=== PATIENT | female | born 1995 | race Caucasian/White ===

== ENCOUNTER 2018-03-08 14:13 | Inpatient (IN) | payer MEDICAID ==
[2018-03-08] MEDS ORDERED: Sodium Chloride 0.9% 10 ML Syringe FLUSH PRN (15:10)
[2018-03-08] MEDS ORDERED: Citric Acid/Sodium Citrate Solution 30 ML Cup PO ONE (15:10)
[2018-03-08] MEDS ORDERED: Metoclopramide 10 MG/2 ML SDV IVPUSH ONE (15:10)
--- NOTE | 2018-03-08 15:16 | PCM.LDHP ---
L&D History of Present Illness - General Date of Service: 03/08/18 Admit Problem/Dx: Patient Status Order with Admit Dx/Problem 03/08/18 15:11 Patient Status [ADT] Routine Admission Diagnosis/Problem Admission Diagnosis/Problem intolerance to labor, delivered, current hospitalization Source of Information: Patient History Limitations: Reports: No Limitations - History of Present Illness Introduction:: 22 year old at 35w4 days with late care dated by a 29 week ultrasound presents with contractions, nausea and vomiting and had multiple heart rate decelerations some to the 60s - Related Data Allergies/Adverse Reactions: Allergies Allergy/AdvReac Type Severity Reaction Status Date / Time No Known Allergies Allergy Verified 02/25/18 01:43 H&P Review of Systems - Review of Systems: Review Of Systems: See Below General: Reports: No Symptoms HEENT: Reports: No Symptoms Pulmonary: Reports: No Symptoms Cardiovascular: Reports: No Symptoms Gastrointestinal: Reports: No Symptoms Genitourinary: Reports: Hematuria Musculoskeletal: Reports: No Symptoms Skin: Reports: No Symptoms Psychiatric: Reports: No Symptoms Neurological: Reports: No Symptoms Hematologic/Lymphatic: Reports: No Symptoms Immunologic: Reports: No Symptoms L&D Exam - Exam Exam: See Below - Vital Signs Vital Signs: Last Vital Signs Temp 37.1 C 03/08/18 14:32 Pulse 95 03/08/18 14:38 Resp 16 03/08/18 14:32 BP 123/76 03/08/18 14:32 Pulse Ox - OB Specific Contraction Intensity: Mild Movement: Active Heart Tones per Min: 145 Heart Rate (FHR) Variability: Moderate (6-25 bmp) Presentation: Vertex - Lomeli Score Lomeli Score Cervix Position: Midposition Lomeli Score Consistency: Soft Lomeli Score Effacement: 51-70% Lomeli Score Dilation: 1-2 cm Lomeli Score Infant's Station: -1 ,0 Lomeli Score Total: 8 - Exam General: Alert, Oriented HEENT: PERRLA, Conjunctiva Clear, EACs Clear, EOMI, Hearing Intact, Mucosa Moist & [place], Nares Patent, Normal Nasal Septum, Posterior Pharynx Clear, TMs Clear Neck: Supple, Trachea Midline Lungs: Clear to Auscultation, Normal Respiratory Effort Cardiovascular: Regular Rate, Regular Rhythm GI/Abdominal Exam: Normal Bowel Sounds, Soft, Non-Tender, No Organomegaly, No Distention, No Abnormal Bruit, No Mass, Pelvis Stable Rectal Exam: Normal Exam, Normal Rectal Tone Genitourinary: Normal external exam, Normal bimanual exam, Normal speculum exam Extremities: Normal Inspection, Normal Range of Motion, Non-Tender, No Pedal Edema, Normal Capillary Refill Skin: Warm, Dry, Intact Neurological: Cranial Nerves Intact, Reflexes Equal Bilateral Psychiatric: Alert, Normal Affect, Normal Mood Problem List Initiated/Reviewed/Updated: Yes Orders Last 24hrs: Active Orders 24 hr Category Date Time Status Patient Status [ADT] Routine ADT 03/08/18 15:11 Ordered Communication Order [RC] ROUTINE Care 03/08/18 15:11 Ordered Heart Tones [RC] PER UNIT ROUTINE Care 03/08/18 15:11 Ordered Peripheral IV Care [RC] . DIRECTED Care 03/08/18 15:11 Ordered Procedure Site Prep Instruct [RC] ASDIRECTED Care 03/08/18 15:11 Ordered Verify Patient Consent Obtain [RC] PER UNIT ROUTINE Care 03/08/18 15:11 Ordered Vital Signs [RC] PFP Care 03/08/18 15:11 Ordered CBC W/O DIFF,HEMOGRAM [HEME] Stat Lab 03/08/18 15:10 Ordered TYPE AND SCREEN [BBK] Routine Lab 03/08/18 15:11 Ordered Citric Acid/Sodium Citrate [Bicitra Solution] Med 03/08/18 15:10 Once 30 ml PO ONETIME ONE Lactated Ringers @ 125 MLS/HR(1000ml) Med 03/08/18 15:15 Ordered Lactated Ringers [Ringers, Lactated] 1,000 ml IV ASDIRECTED Metoclopramide [Reglan] Med 03/08/18 15:10 Once 10 mg IVPUSH ONETIME ONE Sodium Chloride 0.9% [Saline Flush] Med 03/08/18 15:10 Ordered 10 ml FLUSH ASDIRECTED PRN Peripheral IV Insertion Adult [OM.PC] Routine Oth 03/08/18 15:11 Ordered Schedule Procedure [COMM] Per Unit Routine Oth 03/08/18 15:11 Ordered Resuscitation Status Routine Resus Stat 03/08/18 15:10 Ordered Medication Orders Citric Acid/Sodium Citrate (Bicitra Solution) 30 ml PO ONETIME ONE Stop: 03/08/18 15:11 Lactated Ringer's (Ringers, Lactated) 1,000 mls @ 125 mls/hr IV ASDIRECTED [facility] Metoclopramide HCl (Reglan) 10 mg IVPUSH ONETIME ONE Stop: 03/08/18 15:11 Sodium Chloride (Saline Flush) 10 ml FLUSH ASDIRECTED PRN PRN Reason: Keep Vein Open Assessment/Plan Comment:: Monitor closely. Probable section if doesn't improve promptly.
[2018-03-08] MEDS ORDERED: Morphine PF 10 MG/10 ML SDV ONE (15:42)
[2018-03-08] MEDS ORDERED: ceFAZolin 1 GM Vial ONE (15:43)
[2018-03-08] MEDS ORDERED: Ondansetron 4 MG/2 ML SDV ONE (15:43)
[2018-03-08] MEDS ORDERED: Oxytocin 10 Units/1 ML SDV ONE (15:43)
[2018-03-08] MEDS ORDERED: Bupivacaine 0.75%/D5W 2 ML Amp ONE (15:46)
[2018-03-08] MEDS: Lactated Ringers 1,000 ML IV SCH ×2 (15:48→15:49)
[2018-03-08] MEDS ORDERED: Bupivacaine 0.5% 30 ML SDV ONE (15:52)
--- NOTE | 2018-03-08 15:56 | PCM.PREANE ---
Preanesthetic Assessment - Anesthesia/Transfusion/Family Hx Anesthesia History: No Prior Anesthesia Family History of Anesthesia Reaction: No Transfusion History: No Prior Transfusion(s) - Review of Systems General: No Symptoms Pulmonary: No Symptoms Cardiovascular: No Symptoms Gastrointestinal: Nausea, Vomiting (started at 3 am today) Neurological: No Symptoms Other: Reports: None - Physical Assessment NPO Status Date: 03/08/18 NPO Status Time: 14:00 (sip- soup at 1230) Pulse: 95 Respiratory Rate: 16 Blood Pressure: 123/76 Temperature: 98.8 F Vital Signs: Last Vital Signs Temp 98.8 F 03/08/18 14:32 Pulse 95 03/08/18 14:38 Resp 16 03/08/18 14:32 BP 123/76 03/08/18 14:32 Pulse Ox Height: 5 ft 2 in Weight: 63.503 kg ASA Class: 2E Mental Status: Alert & Oriented x3 Airway Class: Mallampati = 1 Dentition: Reports: Normal Dentition Thyro-Mental Finger Breadths: 3 Mouth Opening Finger Breadths: 3 ROM/Head Extension: Full Lungs: Clear to Auscultation, Normal Respiratory Effort Cardiovascular: Regular Rate, Regular Rhythm - Lab Values: Laboratory Last Values WBC 18.14 K/mm3 (3.98-10.04) H 03/08/18 15:25 RBC 4.14 M/mm3 (3.98-5.22) 03/08/18 15:25 Hgb 11.4 gm/L (11.2-15.7) 03/08/18 15:25 Hct 34.4 % (34.1-44.9) 03/08/18 15:25 MCV 83.1 fl (79.4-94.8) 03/08/18 15:25 MCH 27.5 pg (25.6-32.2) 03/08/18 15:25 MCHC 33.1 g/dl (32.2-35.5) 03/08/18 15:25 RDW Std Deviation 44.2 fL (36.4-46.3) 03/08/18 15:25 Plt Count 341 K/mm3 (182-369) 03/08/18 15:25 MPV 9.3 fl (9.4-12.3) L 03/08/18 15:25 - Allergies Allergies/Adverse Reactions: Allergies Allergy/AdvReac Type Severity Reaction Status Date / Time No Known Allergies Allergy Verified 02/25/18 01:43 - Blood Blood Available: No - Acknowledgements Anesthesia Type Planned: Spinal Pt an Appropriate Candidate for the Planned Anesthesia: Yes Alternatives and Risks of Anesthesia Discussed w Pt/Guardian: Yes Pt/Guardian Understands and Agrees with Anesthesia Plan: Yes PreAnesthesia Questionnaire Cardiovascular History: Reports: None Respiratory History: Reports: None Gastrointestinal History: Reports: None : 1 (35 weeks) Para: 0 Oncologic (Cancer) History: Reports: None - History Comment History Comment: vits - SUBSTANCE USE Smoking Status *Q: Current Every Day Smoker (2-3 cigs a day times 1 year) Tobacco Use Within Last Twelve Months: Cigarettes Second Hand Smoke Exposure: Yes Days Per Week of Alcohol Use: 0 Recreational Drug Use History: No - CURRENT (IN HOUSE) MEDS Current Meds: Current Medications Lactated Ringer's (Ringers, Lactated) 1,000 mls @ 125 mls/hr IV ASDIRECTED [facility]IFF Last Admin: 03/08/18 15:49 Dose: 125 mls/hr Sodium Chloride (Saline Flush) 10 ml FLUSH ASDIRECTED PRN PRN Reason: Keep Vein Open Discontinued Medications Bupivacaine HCl/Dextrose (Marcaine 0.75% Spinal) Confirm Administered Dose 2 ml .ROUTE .STK-MED ONE Stop: 03/08/18 15:47 Cefazolin Sodium (Ancef) Confirm Administered Dose 2 gm .ROUTE .STK-MED ONE Stop: 03/08/18 15:44 Citric Acid/Sodium Citrate (Bicitra Solution) 30 ml PO ONETIME ONE Stop: 03/08/18 15:11 Last Admin: 03/08/18 15:47 Dose: 30 ml Metoclopramide HCl (Reglan) 10 mg IVPUSH ONETIME ONE Stop: 03/08/18 15:11 Last Admin: 03/08/18 15:47 Dose: 10 mg Morphine Sulfate (Duramorph Pf) Confirm Administered Dose 10 mg .ROUTE .STK-MED ONE Stop: 03/08/18 15:43 Ondansetron HCl (Zofran) Confirm Administered Dose 4 mg .ROUTE .STK-MED ONE Stop: 03/08/18 15:44 Oxytocin (Pitocin) Confirm Administered Dose 20 unit .ROUTE .STK-MED ONE Stop: 03/08/18 15:44
[2018-03-08] MEDS ORDERED: Meperidine PF 50 MG/ML Syringe ONE (16:22)
[2018-03-08] MEDS ORDERED: Ketorolac 30 MG/ML SDV ONE (16:33)
[2018-03-08] MEDS ORDERED: Ondansetron 4 MG/2 ML SDV IVPUSH PRN (16:50)
[2018-03-08] MEDS ORDERED: fentaNYL 100 MCG/2 ML SDV IVPUSH PRN (16:50)
--- NOTE | 2018-03-08 16:50 | PCM.POSTAN ---
POST ANESTHESIA ASSESSMENT - MENTAL STATUS Mental Status: Alert, Oriented - VITAL SIGNS Pulse Rate: 86 SaO2: 99 Resp Rate: 13 Blood Pressure: 99/68 Temperature: 36.3 C - RESPIRATORY Respiratory Status: Respiratory Rate WNL, Airway Patent, O2 Saturation Stable - CARDIOVASCULAR CV Status: Pulse Rate WNL, Blood Pressure Stable - GASTROINTESTINAL GI Status: No Symptoms - PAIN Pain Score: 0 - POST OP HYDRATION Hydration Status: Adequate & Stable
--- NOTE | 2018-03-08 17:14 | PCM.OPNOTE ---
- General Post-Op/Procedure Note Date of Surgery/Procedure: 03/08/18 Operative Procedure(s): primary section Findings: viable female, weight 2300, 7/9 APGARS, normal uterus,tubes and ovaries. Pre Op Diagnosis: non reasurring heart tones, IUP at 35w4 Post-Op Diagnosis: Same Anesthesia Technique: Spinal Primary Surgeon: Olivia Gaitan Anesthesia Provider: Jose Carlos Olsen Solar Energy Systems Designer: Edward Caro Jr Reason Solar Energy Systems Designer Was Necessary: retraction, patient safety Pathology: placenta Output, Urine Amount: 400 EBL in mLs: 400 Drain/Tube Comments:: huizar Complications: None Condition: Good Free Text/Narrative:: The patient was taken to the operating room where spinal anesthesia was initiated without difficulty. The patient was prepped and draped in the usual sterile fashion in the dorsal supine position with a leftward tilt. A Pfannenstiel skin incision was made with the scalpel and carried through to the underlying layer of fascia. The fascia was incised in the midline and extended laterally using Ingram scissors. Brianna clamps were used to elevate the superior aspect of the fascial incision, which was elevated, and the underlying rectus muscles were dissected off bluntly and using Ingram scissors. Attention was then turned to the inferior aspect of the fascial incision, which in similar fashion was grasped with Brianna clamps, elevated, and the underlying rectus muscles were dissected off bluntly and using the ingram. The rectus muscles were dissected in the midline. The peritoneum was entered bluntly; this incision was extended superiorly and inferiorly with good visualization of the bladder. The bladder blade was inserted. The vesicouterine peritoneum was identified and entered sharply using Metzenbaum scissors. This incision was extended laterally and the bladder flap was created digitally. The bladder blade was reinserted. The lower uterine segment was incised in a transverse fashion using the scalpel and with digital traction. Minimal fluid was noted. The infant was subsequently delivered by flexing the head to the incision. Body and shoulders followed without difficulty. The cord was clamped and cut. The infant was subsequently handed to the awaiting baffle mounter whose presence had been requested.. The placenta was delivered spontaneously intact with a three-vessel cord noted. The uterus was exteriorized and cleared of all clots and debris. The uterine incision was repaired in 2 layers using 0 monocryl. Hemostasis was visualized. Hemostasis was visualized bilaterally. The uterus was returned to the abdomen. The uterine incision was reexamined and it was noted to be hemostatic. The pelvis was copiously irrigated. The fascia was closed with 1 PDS suture, and the skin was closed with 3-0 monocryl. Sponge, lap, and instrument counts were correct x2. The patient was stable at the completion of the procedure and was subsequently transferred to the recovery room in stable condition.
[2018-03-08] MEDS ORDERED: diphenhydrAMINE 50 MG/ML SDV IVPUSH PRN (18:32)
[2018-03-08] MEDS ORDERED: Naloxone 0.4 MG/ML SDV IVPUSH PRN (18:32)
[2018-03-08] MEDS ORDERED: Docusate Sodium 100 MG Cap PO PRN (18:32)
[2018-03-08] MEDS ORDERED: Dextrose 5%-Lactated Ringers 1,000 ML IV SCH (18:32)
[2018-03-08] MEDS ORDERED: ePHEDrine 50 MG/ML SDV IVPUSH PRN (18:32)
[2018-03-08] MEDS ORDERED: Lanolin 100% Cream 7 GM Tube TOP PRN (18:32)
[2018-03-08] MEDS: Ketorolac 30 MG/ML SDV IVPUSH SCH (22:39)
[2018-03-09] MEDS: Ketorolac 30 MG/ML SDV IVPUSH SCH ×2 (04:39→10:51)
--- NOTE | 2018-03-09 06:09 | PCM.PNPP ---
- General Info Date of Service: 03/09/18 Functional Status: Reports: Pain Controlled - Review of Systems General: Reports: No Symptoms HEENT: Reports: No Symptoms Pulmonary: Reports: No Symptoms Cardiovascular: Reports: No Symptoms Gastrointestinal: Reports: No Symptoms Genitourinary: Reports: No Symptoms Musculoskeletal: Reports: No Symptoms Skin: Reports: No Symptoms Neurological: Reports: No Symptoms Psychiatric: Reports: No Symptoms - Patient Data Vital Signs - Most Recent: Last Vital Signs Temp 36.6 C 03/09/18 03:00 Pulse 80 03/09/18 03:00 Resp 19 03/09/18 03:00 BP 103/61 03/09/18 03:00 Pulse Ox 99 03/09/18 03:00 Weight - Most Recent: 63.503 kg I&O - Last 24 Hours: Intake & Output 03/08/18 03/08/18 03/09/18 14:59 22:59 06:59 Output Total 800 Balance -800 Lab Results - Last 24 Hours: Laboratory Results - last 24 hr 03/08/18 03/08/18 Range/Units 15:25 15:25 WBC 18.14 H (3.98-10.04) K/mm3 RBC 4.14 (3.98-5.22) M/mm3 Hgb 11.4 (11.2-15.7) gm/L Hct 34.4 (34.1-44.9) % MCV 83.1 (79.4-94.8) fl MCH 27.5 (25.6-32.2) pg MCHC 33.1 (32.2-35.5) g/dl RDW Std Deviation 44.2 (36.4-46.3) fL Plt Count 341 (182-369) K/mm3 MPV 9.3 L (9.4-12.3) fl Blood Type B POSITIVE Gel Antibody Screen Negative Med Orders - Current: Current Medications Diphenhydramine HCl (Benadryl) 25 mg IVPUSH Q6H PRN PRN Reason: Itching or Nausea Docusate Sodium (Colace) 100 mg PO Q12H PRN PRN Reason: Constipation Emollient Ointment (Lansinoh Hpa) 0 gm TOP ASDIRECTED PRN PRN Reason: Sore Nipples Ephedrine Sulfate (Ephedrine Sulfate) 5 mg IVPUSH SEECOMMENT PRN PRN Reason: Other Ketorolac Tromethamine (Toradol) 30 mg IVPUSH Q6H ON LICENSE OF [facility] Stop: 03/09/18 10:01 Last Admin: 03/09/18 04:39 Dose: 30 mg Naloxone HCl (Narcan) 0.1 mg IVPUSH SEECOMMENT PRN PRN Reason: Respiratory Depression Oxycodone/Acetaminophen (Percocet 325-5 Mg) 2 tab PO Q6H PRN PRN Reason: Pain (moderate 4-6) Pneumococcal Polyvalent Vaccine (Pneumovax 23) 0.5 ml IM .ONCE ONE Stop: 03/10/18 09:01 Discontinued Medications Bupivacaine HCl (Marcaine 0.5%) Confirm Administered Dose 30 ml .ROUTE .STK-MED ONE Stop: 03/08/18 15:53 Last Admin: 03/08/18 16:16 Dose: 20 ml Bupivacaine HCl/Dextrose (Marcaine 0.75% Spinal) Confirm Administered Dose 2 ml .ROUTE .STK-MED ONE Stop: 03/08/18 15:47 Cefazolin Sodium (Ancef) Confirm Administered Dose 2 gm .ROUTE .STK-MED ONE Stop: 03/08/18 15:44 Citric Acid/Sodium Citrate (Bicitra Solution) 30 ml PO ONETIME ONE Stop: 03/08/18 15:11 Last Admin: 03/08/18 15:47 Dose: 30 ml Fentanyl (Sublimaze) 50 mcg IVPUSH Q5M PRN PRN Reason: Pain Lactated Ringer's (Ringers, Lactated) 1,000 mls @ 125 mls/hr IV ASDIRECTED ON LICENSE OF [facility] Last Admin: 03/08/18 15:49 Dose: 125 mls/hr Dextrose/Lactated Ringer's (Dextrose 5%-Lactated Ringers) 1,000 mls @ 125 mls/ hr IV ASDIRECTED ON LICENSE OF [facility] Stop: 03/09/18 02:31 Last Admin: 03/09/18 04:41 Dose: 125 mls/hr Ketorolac Tromethamine (Toradol) Confirm Administered Dose 30 mg .ROUTE .STK- MED ONE Stop: 03/08/18 16:34 Meperidine HCl (Demerol) Confirm Administered Dose 50 mg .ROUTE .STK-MED ONE Stop: 03/08/18 16:23 Metoclopramide HCl (Reglan) 10 mg IVPUSH ONETIME ONE Stop: 03/08/18 15:11 Last Admin: 03/08/18 15:47 Dose: 10 mg Morphine Sulfate (Duramorph Pf) Confirm Administered Dose 10 mg .ROUTE .STK-MED ONE Stop: 03/08/18 15:43 Ondansetron HCl (Zofran) Confirm Administered Dose 4 mg .ROUTE .STK-MED ONE Stop: 03/08/18 15:44 Ondansetron HCl (Zofran) 4 mg IVPUSH ONETIME PRN PRN Reason: Nausea/Vomiting Oxytocin (Pitocin) Confirm Administered Dose 20 unit .ROUTE .STK-MED ONE Stop: 03/08/18 15:44 Sodium Chloride (Saline Flush) 10 ml FLUSH ASDIRECTED PRN PRN Reason: Keep Vein Open - Infant Interaction Disposition, : [place] in Room with Family Infant Interaction: Holding Infant Support Person: Sister - Recovery Exam Fundal Tone: Firm Fundal Level: 2 Fingerbreadths Below Umbilicus Fundal Placement: Midline Lochia Amount: Scant Lochia Color: Rubra/Red Perineum Description: Intact, Minimal Bruising/Swelling Episiotomy/Laceration: None Bladder Status: Indwelling Catheter in Place - Exam General: Alert, Oriented HEENT: Pupils Equal Neck: Supple Lungs: Clear to Auscultation, Normal Respiratory Effort Cardiovascular: Regular Rate, Regular Rhythm GI/Abdominal Exam: Normal Bowel Sounds, Soft, Non-Tender, No Organomegaly, No Distention, No Abnormal Bruit, No Mass, Pelvis Stable Extremities: Normal Inspection, Normal Range of Motion, Non-Tender, No Pedal Edema, Normal Capillary Refill Skin: Warm, Dry, Intact Wound/Incisions: Healing Well Neurological: No New Focal Deficit Psy/Mental Status: Alert, Normal Affect, Normal Mood - Problem List Review Problem List Initiated/Reviewed/Updated: Yes - My Orders Last 24 Hours: My Active Orders 03/08/18 15:10 Resuscitation Status Routine 03/08/18 15:11 Communication Order [RC] ROUTINE Heart Tones [RC] PER UNIT ROUTINE Peripheral IV Care [RC] . DIRECTED Vital Signs [RC] PFP 03/08/18 18:32 Communication Order [RC] PER UNIT ROUTINE Communication Order [RC] PER UNIT ROUTINE Communication Order [RC] PER UNIT ROUTINE Notify Provider Intake and Out [RC] ASDIRECTED Vital Signs [RC] 20,04,12 Acetaminophen/oxyCODONE [Percocet 325-5 MG] 2 tab PO Q6H PRN Docusate Sodium [Colace] 100 mg PO Q12H PRN Lanolin [Lansinoh HPA] See Dose Instructions TOP ASDIRECTED PRN Naloxone [Narcan] 0.1 mg IVPUSH SEECOMMENT PRN diphenhydrAMINE [Benadryl] 25 mg IVPUSH Q6H PRN ePHEDrine [ePHEDrine Sulfate] 5 mg IVPUSH SEECOMMENT PRN Assess Lochia [WOMSER] Per Unit Routine Assess Uterine Involution [WOMSER] Per Unit Routine Medication Administration Instruction [OM.PC] Routine 03/08/18 22:00 Ketorolac [Toradol] 30 mg IVPUSH Q6H 03/08/18 Breakfast Regular Diet [DIET] 03/09/18 05:11 CBC WITH AUTO DIFF [HEME] AM 03/09/18 17:08 Urinary Catheter Removal [RC] Per Unit Routine 03/10/18 09:00 Pneumococcal Polyvalent-23 Vac [Pneumovax 23] 0.5 ml IM .ONCE ONE - Assessment Assessment:: POD1 from at 35w4 for NRFHT Doing great Minimal bleeding Minimal pain. Thomson out today Advance diet as tolerated Increase ambulation and routine postop care for this immediate postop day
--- NOTE | 2018-03-09 08:02 | PCM48HPAN ---
Post Anesthesia Note - EVALUATION WITHIN 48HRS OF ANESTHETIC Vital Signs in Normal Range: Yes Patient Participated in Evaluation: Yes Respiratory Function Stable: Yes Airway Patent: Yes Cardiovascular Function Stable: Yes Hydration Status Stable: Yes Pain Control Satisfactory: Yes Nausea and Vomiting Control Satisfactory: Yes Mental Status Recovered: Yes
[2018-03-09] MEDS: Acetaminophen/oxyCODONE 325-5 MG Tab PO PRN ×2 (17:00→21:54)
[2018-03-10] MEDS: Acetaminophen/oxyCODONE 325-5 MG Tab PO PRN ×2 (07:01→12:09)
[2018-03-10] MEDS ORDERED: Pneumococcal Polyvalent-23 Vaccine 0.5 ML SDV IM ONE (09:00)
--- NOTE | 2018-03-10 10:48 | PCM.DCSUM1 ---
Discharge Summary - Hospital Course Brief History: Presented with severe nausea and vomiting at 35w3d. Had NRFHT so proceeded to section - Discharge Data Discharge Date: 03/10/18 Discharge Disposition: Home, Self-Care 01 Condition: Good - Patient Summary/Data Operative Procedure(s) Performed: primary section - Patient Instructions Diet: Usual Diet as Tolerated Activity: No Strenuous Activities Driving: May Drive Today Wound/Incision Care: Keep Operative Site/Wound Site Clean and Dry, Change Dressing Daily, Do NOT Change Dressing Notify Provider of: Fever, Increased Pain, Swelling and Redness, Drainage, Nausea and/or Vomiting - Discharge Plan Patient Handouts: Steps to Quit Smoking Referrals: Olivia Gaitan MD [Primary Care Provider] - (2-3 weeks) - Discharge Summary/Plan Comment DC Time >30 min.: No - General Info Date of Service: 03/10/18 Functional Status: Reports: Pain Controlled - Review of Systems General: Reports: No Symptoms HEENT: Reports: No Symptoms Pulmonary: Reports: No Symptoms Cardiovascular: Reports: No Symptoms Gastrointestinal: Reports: No Symptoms Genitourinary: Reports: No Symptoms Musculoskeletal: Reports: No Symptoms Skin: Reports: No Symptoms Neurological: Reports: No Symptoms Psychiatric: Reports: No Symptoms - Patient Data Vitals - Most Recent: Last Vital Signs Temp 36.3 C 03/10/18 04:40 Pulse 66 03/10/18 04:40 Resp 16 03/10/18 04:40 BP 100/61 03/10/18 04:40 Pulse Ox 98 03/10/18 04:40 Weight - Most Recent: 63.503 kg I&O - Last 24 hours: Intake & Output 03/09/18 03/10/18 03/10/18 22:59 06:59 14:59 Intake Total 820 240 Output Total 600 Balance 220 240 Med Orders - Current: Current Medications Diphenhydramine HCl (Benadryl) 25 mg IVPUSH Q6H PRN PRN Reason: Itching or Nausea Docusate Sodium (Colace) 100 mg PO Q12H PRN PRN Reason: Constipation Emollient Ointment (Lansinoh Hpa) 0 gm TOP ASDIRECTED PRN PRN Reason: Sore Nipples Ephedrine Sulfate (Ephedrine Sulfate) 5 mg IVPUSH SEECOMMENT PRN PRN Reason: Other Naloxone HCl (Narcan) 0.1 mg IVPUSH SEECOMMENT PRN PRN Reason: Respiratory Depression Oxycodone/Acetaminophen (Percocet 325-5 Mg) 2 tab PO Q6H PRN PRN Reason: Pain (moderate 4-6) Last Admin: 03/10/18 07:01 Dose: 2 tab Discontinued Medications Bupivacaine HCl (Marcaine 0.5%) Confirm Administered Dose 30 ml .ROUTE .STK-MED ONE Stop: 03/08/18 15:53 Last Admin: 03/08/18 16:16 Dose: 20 ml Bupivacaine HCl/Dextrose (Marcaine 0.75% Spinal) Confirm Administered Dose 2 ml .ROUTE .STK-MED ONE Stop: 03/08/18 15:47 Cefazolin Sodium (Ancef) Confirm Administered Dose 2 gm .ROUTE .STK-MED ONE Stop: 03/08/18 15:44 Citric Acid/Sodium Citrate (Bicitra Solution) 30 ml PO ONETIME ONE Stop: 03/08/18 15:11 Last Admin: 03/08/18 15:47 Dose: 30 ml Fentanyl (Sublimaze) 50 mcg IVPUSH Q5M PRN PRN Reason: Pain Lactated Ringer's (Ringers, Lactated) 1,000 mls @ 125 mls/hr IV ASDIRECTED [facility] Last Admin: 03/08/18 15:49 Dose: 125 mls/hr Dextrose/Lactated Ringer's (Dextrose 5%-Lactated Ringers) 1,000 mls @ 125 mls/ hr IV ASDIRECTED [facility] Stop: 03/09/18 02:31 Last Admin: 03/09/18 04:41 Dose: 125 mls/hr Ketorolac Tromethamine (Toradol) Confirm Administered Dose 30 mg .ROUTE .STK- MED ONE Stop: 03/08/18 16:34 Ketorolac Tromethamine (Toradol) 30 mg IVPUSH Q6H [facility] Stop: 03/09/18 10:01 Last Admin: 03/09/18 10:51 Dose: 30 mg Meperidine HCl (Demerol) Confirm Administered Dose 50 mg .ROUTE .STK-MED ONE Stop: 03/08/18 16:23 Metoclopramide HCl (Reglan) 10 mg IVPUSH ONETIME ONE Stop: 03/08/18 15:11 Last Admin: 03/08/18 15:47 Dose: 10 mg Morphine Sulfate (Duramorph Pf) Confirm Administered Dose 10 mg .ROUTE .STK-MED ONE Stop: 03/08/18 15:43 Ondansetron HCl (Zofran) Confirm Administered Dose 4 mg .ROUTE .STK-MED ONE Stop: 03/08/18 15:44 Ondansetron HCl (Zofran) 4 mg IVPUSH ONETIME PRN PRN Reason: Nausea/Vomiting Oxytocin (Pitocin) Confirm Administered Dose 20 unit .ROUTE .STK-MED ONE Stop: 03/08/18 15:44 Pneumococcal Polyvalent Vaccine (Pneumovax 23) 0.5 ml IM .ONCE ONE Stop: 03/10/18 09:01 Sodium Chloride (Saline Flush) 10 ml FLUSH ASDIRECTED PRN PRN Reason: Keep Vein Open - Exam General: Reports: Alert, Oriented HEENT: Reports: Pupils Equal, Pupils Reactive, EOMI, Mucous Membr. Moist/[place] Neck: Reports: Supple Lungs: Reports: Clear to Auscultation, Normal Respiratory Effort Cardiovascular: Reports: Regular Rate, Regular Rhythm GI/Abdominal Exam: Normal Bowel Sounds, Soft, Non-Tender, No Organomegaly, No Distention, No Abnormal Bruit, No Mass, Pelvis Stable Back Exam: Reports: Normal Inspection, Full Range of Motion Extremities: Normal Inspection, Normal Range of Motion, Non-Tender, No Pedal Edema, Normal Capillary Refill Skin: Reports: Warm, Dry, Intact Wound/Incisions: Reports: Healing Well Neurological: Reports: No New Focal Deficit Psy/Mental Status: Reports: Alert, Normal Affect, Normal Mood
== END 2018-03-10 14:30 | disposition home or self-care (01) | DRG 766 ==
LOC: JD.OBCHECK 14:13 → JD.OB 14:14 → JD.OBCHECK 15:11 → JD.OB 16:18
PROVIDERS: ADMIT Obstetrics & Gynecology; ATTEND Obstetrics & Gynecology
PROC: 10D00Z1 Extraction of Products of Conception, Low, Open Approach (ICD-10-PCS; principal; 2018-03-08)
DX: O76 Abnormality in fetal heart rate and rhythm complicating labor and delivery (principal); O99.334 Smoking (tobacco) complicating childbirth; F17.210 Nicotine dependence, cigarettes, uncomplicated; Z3A.35 35 weeks gestation of pregnancy; Z37.0 Single live birth
CPT/HCPCS: 01961; 36415; 59025; 85025; 85027; 86850; 86900; 86901; 94762; A9270-GY; J0690; J1885; J2175; J2270; J2405; J2590; J2765; J7042; J7120

== ENCOUNTER 2018-04-08 18:55 | Inpatient (IN) | payer MEDICAID ==
[2018-04-08] MEDS ORDERED: Hyoscyamine 0.125 MG Tab.SL SL ONE (19:09)
[2018-04-08] MEDS ORDERED: Metoclopramide 10 MG/2 ML SDV IVPUSH ONE (19:10)
[2018-04-08] MEDS ORDERED: HYDROmorphone 0.5 MG/0.5 ML SYRINGE IVPUSH ONE (19:10)
--- NOTE | 2018-04-08 19:14 | EDM.PDOC ---
ED HPI GENERAL MEDICAL PROBLEM - General Chief Complaint: Abdominal Pain Stated Complaint: RIGHT SIDE PAIN Time Seen by Provider: 04/08/18 19:09 Source of Information: Reports: Patient History Limitations: Reports: No Limitations - History of Present Illness INITIAL COMMENTS - FREE TEXT/NARRATIVE: 22-year-old female presents to the ED with right upper quadrant abdominal pain starting about 1500 hrs. today. She has known gallstones and has an appointment to see the surgeon on April 12. She did eat hotdogs with macaroni and cheese prior to the onset of the attack. She states that led up for a while but an hour ago started to come back again. Associated nausea without any vomiting. No diarrhea. No previous abdominal surgery. She is one month . She delivered a female child March 08 at 5 lbs. 5 oz. She is not breast-feeding at this time. Did have troubles with biliary colic during the . Onset: Today Onset Date: 04/08/18 Onset Time: 15:00 Duration: Hour(s): Location: Reports: Abdomen (Right upper quadrant and then rating around to the right), Radiates to (Right infrascapular area) Quality: Reports: Ache, Pressure, Throbbing, Other Severity: Moderate (Mild colicky component current pain is 6 out of 10) Improves with: Reports: None Worsens with: Reports: None Context: Denies: Activity, Exercise, Lifting, Sick Contact, Other Associated Symptoms: Reports: Loss of Appetite, Nausea/Vomiting, Shortness of Breath. Denies: No Other Symptoms, Confusion, Chest Pain, Cough, cough w sputum , Diaphoresis, Fever/Chills, Headaches, Malaise, Rash, Seizure (Taking a deep breath made the pain worse.), Syncope, Weakness (Nausea without vomiting) Treatments TWISTER HAND: Reports: Other (see below) (None.) Right Abdominal Pain Score (Numeric/FACES): 5 - Related Data Allergies Allergy/AdvReac Type Severity Reaction Status Date / Time No Known Allergies Allergy Verified 04/08/18 19:03 Home Meds: Home Meds . 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 Denies: Fever, Chills, Malaise, Weakness, Fatigue, Weight Loss HEENT: Reports: No Symptoms Respiratory: Reports: No Symptoms Cardiovascular: Reports: No Symptoms Endocrine: Reports: No Symptoms GI/Abdominal: Reports: Abdominal Pain (See history of present illness), Nausea. Denies: Diarrhea, Vomiting : Reports: No Symptoms Musculoskeletal: Reports: No Symptoms Skin: Reports: No Symptoms Neurological: Reports: No Symptoms Psychiatric: Reports: No Symptoms Hematologic/Lymphatic: Reports: No Symptoms Immunologic: Reports: No Symptoms ED EXAM, GI/ABD - Physical Exam Exam: See Below Exam Limited By: No Limitations General Appearance: Alert, WD/WN, Mild Distress (Appears mildly cortical.) Eyes: Bilateral: Normal Appearance Throat/Mouth: Normal Inspection (No jaundice.), Normal Lips, Normal Teeth, Normal Gums, Normal Oropharynx Head: Atraumatic, Normocephalic Neck: Normal Inspection, Supple, Non-Tender, Full Range of Motion Respiratory/Chest: No Respiratory Distress, Lungs Clear, Normal Breath Sounds, No Accessory Muscle Use Cardiovascular: Normal Peripheral Pulses, Regular Rate, Rhythm, No Edema, No Gallop, No Murmur GI/Abdominal Exam: Normal Bowel Sounds, No Organomegaly, No Distention, No Abnormal Bruit, No Mass, Pelvis Stable, Tender (Tender right costal margin with positive Salazar sign barely. Mildly tender). No: Guarding, Rigid, Rebound Back Exam: Normal Inspection, Full Range of Motion. No: CVA Tenderness (L), CVA Tenderness (R) Extremities: Normal Inspection, Normal Range of Motion, Non-Tender, No Pedal Edema Neurological: Alert, Oriented, CN II-XII Intact, Normal Cognition Psychiatric: Normal Affect, Normal Mood Skin Exam: Warm, Dry, Intact, Normal Color, No Rash Course - Vital Signs Last Recorded V/S: Last Vital Signs Temp 36.3 C 04/08/18 18:59 Pulse 64 04/08/18 18:59 Resp 18 04/08/18 18:59 BP 114/73 04/08/18 18:59 Pulse Ox 99 04/08/18 18:59 - Orders/Labs/Meds Orders: Active Orders 24 hr Category Date Time Status Admission Status [Patient Status] [ADT] Routine ADT 04/08/18 20:44 Active Dextrose 5%-0.9% NaCl [Dextrose 5%-Normal Saline] 1,000 Med 04/08/18 19:15 Active ml IV ASDIRECTED Medication Orders Dextrose/Sodium Chloride (Dextrose 5%-Normal Saline) 1,000 mls @ 150 mls/hr IV ASDIRECTED CLIFF Last Admin: 04/08/18 19:32 Dose: 150 mls/hr Labs: Laboratory Tests 04/08/18 04/08/18 Range/Units 19:25 19:25 WBC 10.53 H (3.98-10.04) K/mm3 RBC 4.86 (3.98-5.22) M/mm3 Hgb 13.1 (11.2-15.7) gm/L Hct 40.6 (34.1-44.9) % MCV 83.5 (79.4-94.8) fl MCH 27.0 (25.6-32.2) pg MCHC 32.3 (32.2-35.5) g/dl RDW Std Deviation 40.8 (36.4-46.3) fL Plt Count 372 H (182-369) K/mm3 MPV 8.2 L (9.4-12.3) fl Neutrophils % (Manual) 77 H (40-60) % Band Neutrophils % 0 (0-10) % Lymphocytes % (Manual) 20 (20-40) % Atypical Lymphs % 0 % Monocytes % (Manual) 1 L (2-10) % Eosinophils % (Manual) 0 L (0.7-5.8) % Basophils % (Manual) 2 H (0.1-1.2) Platelet Estimate Adequate Plt Morphology Comment Normal RBC Morph Comment Normal Sodium 140 (136-145) mEq/L Potassium 4.1 (3.5-5.1) mEq/L Chloride 105 (98-107) mEq/L Carbon Dioxide 26 (21-32) mEq/L Anion Gap 13.1 (5-15) BUN 10 (7-18) mg/dL Creatinine 0.8 (0.55-1.02) mg/dL Est Cr Clr Drug Dosing 87.98 mL/min Estimated GFR (MDRD) > 60 (>60) mL/min BUN/Creatinine Ratio 12.5 L (14-18) Glucose 151 H (74-106) mg/dL Calcium 9.3 (8.5-10.1) mg/dL Total Bilirubin 0.3 (0.2-1.0) mg/dL AST 18 (15-37) U/L ALT 24 (14-59) U/L Alkaline Phosphatase 99 (46-116) U/L C-Reactive Protein < 0.2 (<1.0) mg/dL Total Protein 7.2 (6.4-8.2) g/dl Albumin 3.5 (3.4-5.0) g/dl Globulin 3.7 gm/dL Albumin/Globulin Ratio 1.0 (1-2) Lipase 4527 H (73-393) U/L Meds: Medications Generic Name Dose Route Start Last Admin Trade Name Freq PRN Reason Stop Dose Admin Dextrose/Sodium Chloride 1,000 mls @ 150 mls/hr 04/08/18 19:15 04/08/18 19:32 Dextrose 5%-Normal Saline IV 150 mls/hr ASDIRECTED CLIFF Administration Discontinued Medications Generic Name Dose Route Start Last Admin Trade Name Freq PRN Reason Stop Dose Admin Hydromorphone HCl 0.5 mg 04/08/18 19:10 04/08/18 19:32 Dilaudid IVPUSH 04/08/18 19:11 0.5 mg ONETIME ONE Administration Hyoscyamine 0.125 mg 04/08/18 19:09 04/08/18 19:33 Hyomax-Sl SL 04/08/18 19:10 0.125 mg ONETIME ONE Administration Metoclopramide HCl 7.5 mg 04/08/18 19:10 04/08/18 19:32 Reglan IVPUSH 04/08/18 19:11 7.5 mg ONETIME ONE Administration - Radiology Interpretation Free Text/Narrative:: 22-year-old female presents to the ED with recurrent bout of biliary colic by history. She's had several bouts during her which ended March 08. She ate macaroni and cheese and hot dogs for dinner today and developed right upper quadrant abdominal pain about 1500 hrs. It eased up for about 45 minutes but returned about 1800 hrs. It is not as bad now as it was the first time. She is known to have multiple gallstones of small size. She is not breast-feeding at this time. Plan Levsin 0.125 mg sublingual. IV will be D5 normal saline 150 mils per hour. Given Dilaudid 0.5 mg IV with Reglan 7.5 mg IV for pain and nausea relief. Labs to be collected to include CRP and a lipase. - Re-Assessments/Exams Free Text/Narrative Re-Assessment/Exam: 04/08/18 19:48 patient reports she just got her medication therefore is not sure if there's been any pain relief. This includes the sublingual Levsin. 04/08/18 20:16 Labs are back. White count is mildly elevated at 10.53 with a mild left shift of 77% neutrophils but no bands. Hemoglobin is 13.1 with hematocrit of 40.6. Platelet count is normal at 372,000. Sodium is 140 with a potassium of 4.1. Chloride is 105 with a bicarbonate of 26. Anion gap is normal at 13.1. BUN is 10 with a creatinine of 0.8. GFR is greater than 60. Glucose is 151. Calcium is 9.3. Total bilirubin 0.3. AST is 18 ALT is 24. Alk phosphatase is 99. C-reactive protein is less than 0.2. Total protein is normal at 7.2 with an albumin fraction of 3.5. Lipase is markedly elevated at 4527. 04/08/18 20:33 options discussed with the patient. She is willing to coming to the hospital for or at least observation. If her lipase continues to rise she will need MRI ERCP or definitive management with cholecystectomy and exploration of the common bile duct. Discussed with Dr. Parrish telephoner hospitalist and she will see the patient in the ED. Departure - Departure Time of Disposition: 20:47 Disposition: Admitted As Inpatient 67 Condition: Fair Clinical Impression: Pancreatitis Qualifiers: Chronicity: acute Pancreatitis type: unspecified pancreatitis type Acute pancreatitis complication: unspecified Qualified Code(s): K85.90 - Acute pancreatitis without necrosis or infection, unspecified - Discharge Information Referrals: Olivia Gaitan MD [Primary Care Provider] - Forms: ED Department Discharge - My Orders Last 24 Hours: My Active Orders 04/08/18 19:15 Dextrose 5%-0.9% NaCl [Dextrose 5%-Normal Saline] 1,000 ml IV ASDIRECTED 04/08/18 20:44 Admission Status [Patient Status] [ADT] Routine - Assessment/Plan Last 24 Hours: My Active Orders 04/08/18 19:15 Dextrose 5%-0.9% NaCl [Dextrose 5%-Normal Saline] 1,000 ml IV ASDIRECTED 04/08/18 20:44 Admission Status [Patient Status] [ADT] Routine
[2018-04-08] MEDS ORDERED: Dextrose 5%-0.9% NaCl 1,000 ML IV SCH (19:15)
[2018-04-08] MEDS ORDERED: Ketorolac 15 MG/ML SDV IVPUSH PRN (21:44)
[2018-04-08] MEDS ORDERED: Ondansetron 4 MG/2 ML SDV IVPUSH PRN (21:44)
[2018-04-08] MEDS ORDERED: Temazepam 15 MG Cap PO PRN (21:45)
[2018-04-08] MEDS ORDERED: Sodium Chloride 0.9% 1,000 ML IV SCH (21:45)
[2018-04-08] MEDS ORDERED: HYDROmorphone 0.5 MG/0.5 ML SYRINGE IVPUSH PRN (21:50)
--- NOTE | 2018-04-09 06:19 | PCM.HP ---
H&P History of Present Illness - General Date of Service: 04/09/18 Admit Problem/Dx: Admission Diagnosis/Problem Admission Diagnosis/Problem Acute pancreatitis Source of Information: Patient, Old Records, Provider, RN, RN Notes Reviewed History Limitations: Reports: No Limitations - History of Present Illness Initial Comments - Free Text/Narative: Marisela Ludwig is a 22 yo female who presented to our ED yesterday evening with 6 /10 RUQ pain which radiates to the right infrascapular area that started around 1500 on 04/08/18 after eating hotdogs with macaroni and cheese. She has known gallstones and reportedly has an appointment to see the surgeon on April 12. The pain reportedly hit and then resided but returned. She was nauseated but did not vomit. No diarrhea. No prior abdominal surgery. She is one month having delivered a healthy 5lb 5oz baby girl on March 08 via C- section. She is not breast feeding. She reportedly had troubles with biliary colic throughout . in the ED temp was 36.3C. Pulse 64. Respirations 18. Blood pressure 114/73. Pulse ox 99% on room air. Labs were obtained. She does have a mild leukocytosis at 10.53. Hemoglobin 13.1. She was normocytic. Platelet elevated at 372,000. Neutrophils are elevated at 77%. There is no bandemia. Sodium is 140. Potassium 4.1. Chloride 105. Carbon dioxide 26. Anion gap was good at 13.1. BUN is 10. Creatinine 0.8. EGFR is greater than 60. Glucose is elevated at 151. Calcium 9.3. Total bilirubin 0.3. AST is 18, ALT 24, alkaline phosphatase is 99. CRP is less than 0.2. Total protein 7.2. Albumin 3.5. Lipase is very high at 4527. iven 0.5 mg Dilaudidfor pain as well as Hyoscyamine 0.1254 sublingual and 7.5mg IVP reglan. She carries a history of cholelithiasis, biliary colic, and one month ago. She was never a smoker. She is subsequently admitted to the medical floor. She is a full code. She recently moved here and does not have a PCP. She sees Dr. Gaitan for her OB care. Right Abdominal Pain Score (Numeric/FACES): 2 - Related Data Allergies/Adverse Reactions: Allergies Allergy/AdvReac Type Severity Reaction Status Date / Time No Known Allergies Allergy Verified 04/08/18 19:03 Home Medications: Home Meds . 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: Musculoskeletal History: Reports: None Oncologic (Cancer) History: Reports: None - Past Surgical History GI Surgical History: Reports: None Female Surgical History: Reports: Section - History Comment History Comment: vits Social & Family History - Family History Family Medical History: Noncontributory - Tobacco Use Smoking Status *Q: Former Smoker Years of Tobacco use: 1 Packs/Tins Daily: 1 Used Tobacco, but Quit: Yes Month/Year Tobacco Last Used: March 07 2018 Second Hand Smoke Exposure: No - Caffeine Use Caffeine Use: Reports: Coffee, Energy Drinks, Soda, Tea Other Caffeine Use: all and frequently - Recreational Drug Use Recreational Drug Use: No - Living Situation & Occupation Living situation: Reports: Single Occupation: Unemployed H&P Review of Systems - Review of Systems: Review Of Systems: See Below General: Reports: Decreased Appetite. Denies: Fever, Chills, Malaise, Weakness , Fatigue, Weight Loss, Weight Gain HEENT: Reports: No Symptoms. Denies: Ear Pain, Eye Pain, Rhinitis, Visual Changes Pulmonary: Reports: No Symptoms. Denies: Shortness of Breath, Wheezing, Cough Cardiovascular: Reports: No Symptoms. Denies: Chest Pain, Palpitations, Dyspnea on Exertion, Edema, Lightheadedness Gastrointestinal: Reports: Abdominal Pain (RUQ ), Nausea. Denies: Constipation , Diarrhea, Vomiting Genitourinary: Reports: No Symptoms. Denies: Dysuria, Frequency, Burning, Pain Musculoskeletal: Reports: No Symptoms Skin: Reports: No Symptoms Psychiatric: Reports: No Symptoms Neurological: Reports: No Symptoms Hematologic/Lymphatic: Reports: No Symptoms Immunologic: Reports: No Symptoms Exam - Exam Exam: See Below - Vital Signs Vital Signs: Last Vital Signs Temp 97.8 F 04/08/18 21:16 Pulse 46 L 04/09/18 00:59 Resp 14 04/09/18 00:59 BP 114/68 04/09/18 00:59 Pulse Ox 100 04/09/18 00:59 Weight: 129 lb 14.4 oz - Exam Quality Assessment: DVT Prophylaxis General: Alert, Oriented, Cooperative. No: Mild Distress HEENT: Conjunctiva Clear, EACs Clear, EOMI, Hearing Intact, Mucosa Moist & [place] , Nares Patent, Posterior Pharynx Clear, PERRLA Neck: Supple, Trachea Midline. No: JVD Lungs: Clear to Auscultation, Normal Respiratory Effort. No: Rhonchi, Wheezing Cardiovascular: Regular Rate, Regular Rhythm GI/Abdominal Exam: Normal Bowel Sounds, Soft, No Organomegaly, No Distention, Guarding (RUQ ), Tender (RUQ - very tender to palpitation ). No: Rebound (Female) Exam: Deferred Rectal (Female) Exam: Deferred Back Exam: Normal Inspection, Full Range of Motion. No: CVA Tenderness (L), CVA Tenderness (R) Extremities: Normal Inspection, Normal Range of Motion, Non-Tender, No Pedal Edema, Normal Capillary Refill Peripheral Pulses: 2+: Radial (L), Radial (R), Posterior Tibial (L), Posterior Tibial (R), Dorsalis Pedis (L), Dorsalis Pedis (R) Skin: Warm, Dry, Intact Neurological: Cranial Nerves Intact (grossly) Neuro Extensive - Mental Status: Alert, Oriented x3, Normal Mood/Affect, Normal Cognition, Memory Intact Psychiatric: Alert, Normal Affect, Normal Mood - Patient Data Lab Results Last 24 hrs: Laboratory Results - last 24 hr 04/08/18 04/08/18 Range/Units 19:25 19:25 WBC 10.53 H (3.98-10.04) K/mm3 RBC 4.86 (3.98-5.22) M/mm3 Hgb 13.1 (11.2-15.7) gm/L Hct 40.6 (34.1-44.9) % MCV 83.5 (79.4-94.8) fl MCH 27.0 (25.6-32.2) pg MCHC 32.3 (32.2-35.5) g/dl RDW Std Deviation 40.8 (36.4-46.3) fL Plt Count 372 H (182-369) K/mm3 MPV 8.2 L (9.4-12.3) fl Neutrophils % (Manual) 77 H (40-60) % Band Neutrophils % 0 (0-10) % Lymphocytes % (Manual) 20 (20-40) % Atypical Lymphs % 0 % Monocytes % (Manual) 1 L (2-10) % Eosinophils % (Manual) 0 L (0.7-5.8) % Basophils % (Manual) 2 H (0.1-1.2) Platelet Estimate Adequate Plt Morphology Comment Normal RBC Morph Comment Normal Sodium 140 (136-145) mEq/L Potassium 4.1 (3.5-5.1) mEq/L Chloride 105 (98-107) mEq/L Carbon Dioxide 26 (21-32) mEq/L Anion Gap 13.1 (5-15) BUN 10 (7-18) mg/dL Creatinine 0.8 (0.55-1.02) mg/dL Est Cr Clr Drug Dosing 87.98 mL/min Estimated GFR (MDRD) > 60 (>60) mL/min BUN/Creatinine Ratio 12.5 L (14-18) Glucose 151 H (74-106) mg/dL Calcium 9.3 (8.5-10.1) mg/dL Total Bilirubin 0.3 (0.2-1.0) mg/dL AST 18 (15-37) U/L ALT 24 (14-59) U/L Alkaline Phosphatase 99 (46-116) U/L C-Reactive Protein < 0.2 (<1.0) mg/dL Total Protein 7.2 (6.4-8.2) g/dl Albumin 3.5 (3.4-5.0) g/dl Globulin 3.7 gm/dL Albumin/Globulin Ratio 1.0 (1-2) Lipase 4527 H (73-393) U/L Result Diagrams: 04/09/18 06:10 04/09/18 06:10 - Problem List (1) Pancreatitis SNOMED Code(s): 44268667 ICD Code: K85.90 - ACUTE PANCREATITIS WITHOUT NECROSIS OR INFECTION, UNSP Status: Acute Priority: High Current Visit: Yes Qualifiers: Chronicity: acute Pancreatitis type: unspecified pancreatitis type Acute pancreatitis complication: unspecified Qualified Code(s): K85.90 - Acute pancreatitis without necrosis or infection, unspecified (2) Cholelithiasis SNOMED Code(s): 510789843 ICD Code: K80.20 - CALCULUS OF GALLBLADDER W/O CHOLECYSTITIS W/O OBSTRUCTION Status: Chronic Priority: High Current Visit: Yes Qualifiers: Cholelithiasis location: other site Biliary obstruction: without biliary obstruction Qualified Code(s): K80.80 - Other cholelithiasis without obstruction (3) Bradycardia SNOMED Code(s): 34666472 ICD Code: R00.1 - BRADYCARDIA, UNSPECIFIED Status: Acute Current Visit: Yes Problem List Initiated/Reviewed/Updated: Yes Orders Last 24hrs: Active Orders 24 hr Category Date Time Status Patient Status [ADT] Routine ADT 04/09/18 05:28 Active Notify Provider Consults [RC] 0700 Care 04/08/18 21:49 Active Consult to Physician [CONS] Routine Cons 04/08/18 21:48 Active NPO [Nothing Per Oral Diet] [DIET] Diet 04/09/18 Breakfast Active BASIC METABOLIC PANEL,BMP [CHEM] Routine Lab 04/09/18 05:00 Ordered CBC WITH AUTO DIFF [HEME] Routine Lab 04/09/18 05:00 Ordered CRP [C-REACTIVE PROTEIN] [CHEM] Routine Lab 04/09/18 05:00 Ordered LIPASE [CHEM] Routine Lab 04/09/18 05:00 Ordered MAGNESIUM [CHEM] Routine Lab 04/09/18 05:00 Ordered HYDROmorphone [Dilaudid] Med 04/08/18 21:50 Active 0.5 mg IVPUSH Q6HR PRN Ketorolac [Toradol] Med 04/08/18 21:44 Active 15 mg IVPUSH Q8H PRN Ondansetron [Zofran] Med 04/08/18 21:44 Active 4 mg IVPUSH Q8H PRN Sodium Chloride 0.9% [Normal Saline] 1,000 ml Med 04/08/18 21:45 Active IV ASDIRECTED Temazepam [Restoril] Med 04/08/18 21:45 Active 15 mg PO BEDTIME PRN NAZARIO Hose [Antiembolic Hose] [OM.PC] Routine Oth 04/08/18 21:45 Ordered Resuscitation Status Routine Resus Stat 04/08/18 21:42 Ordered Medication Orders Hydromorphone HCl (Dilaudid) 0.5 mg IVPUSH Q6HR PRN PRN Reason: Pain (severe 7-10) Sodium Chloride (Normal Saline) 1,000 mls @ 100 mls/hr IV ASDIRECTED CLIFF Stop: 04/09/18 07:44 Last Admin: 04/08/18 22:10 Dose: 100 mls/hr Ketorolac Tromethamine (Toradol) 15 mg IVPUSH Q8H PRN PRN Reason: Pain (moderate 4-6) Ondansetron HCl (Zofran) 4 mg IVPUSH Q8H PRN PRN Reason: Nausea/Vomiting Temazepam (Restoril) 15 mg PO BEDTIME PRN PRN Reason: Insomnia Assessment/Plan Comment:: I/P: Acute; Pancreatitis -Increasing RUQ pain starting 1500 on 04/08/18 -Pain started after eating hotdogs, macaroni and cheese -Reports having pain and issues for some time - since before -Known cholelithiasis - has appointment to see surgeon on 04/13/18 -Very mild leukocytosis (10.53) -->8.05 -CRP WNL -No transaminitis - AST 18, ALT 24, Alk Phos 99 -Lipase 4527-->465 -NPO for now, will advance once Dr. Guan sees her -Fluids as ordered -Pain medications as ordered -Anti-emetics as needed -GS consult - Dr. Guan -Obtain old records - was worked-up for cholelithiasis recently; has had HIDA scan and CT recently -Samir's Criteria: Incomplete (no LDH); 0 -Healthy delivery via on 03/08/18 -Not breast feeding -Had appointment with Dr. Gaitan on 04/09/18 - contacted her and updated Hypomagnesemia -Magnesium 1.7 -Supplement Chronic: Cholelithiasis Plan: Admit to medical floor She is ambulating and active so will hold off PT/OT DVT/PE prophylaxis: NAZARIO Hose, ambulation Other orders as indicated above No current home meds Code status: Full code; PCP: None locally; Sees Dr. Gaitan for OB
[2018-04-09] MEDS ORDERED: Ondansetron 4 MG Tab.DIS PO PRN (06:27)
[2018-04-09] MEDS ORDERED: Magnesium Oxide 400 MG Tab PO ONE (07:43)
[2018-04-09] MEDS ORDERED: Magnesium Sulfate/Water 2 GM in Premix Bag 1 BAG IV ONE (07:50)
--- NOTE | 2018-04-09 11:30 | PCM.CONSN ---
- General Info Date of Service: 04/09/18 - Patient Data Vitals - Most Recent: Last Vital Signs Temp 98.8 F 04/09/18 06:30 Pulse 59 L 04/09/18 08:00 Resp 16 04/09/18 08:49 BP 105/63 04/09/18 08:49 Pulse Ox 100 04/09/18 08:00 Weight - Most Recent: 58.922 kg I&O - Last 24 Hours: Intake & Output 04/08/18 04/09/18 04/09/18 23:59 07:59 15:59 Intake Total 640 Balance 640 Lab Results Last 24 Hours: Laboratory Results - last 24 hr 04/08/18 04/08/18 04/09/18 Range/Units 19:25 19:25 06:10 WBC 10.53 H 8.05 (3.98-10.04) K/mm3 RBC 4.86 4.71 (3.98-5.22) M/mm3 Hgb 13.1 12.6 (11.2-15.7) gm/L Hct 40.6 39.8 (34.1-44.9) % MCV 83.5 84.5 (79.4-94.8) fl MCH 27.0 26.8 (25.6-32.2) pg MCHC 32.3 31.7 L (32.2-35.5) g/dl RDW Std Deviation 40.8 42.1 (36.4-46.3) fL Plt Count 372 H 360 (182-369) K/mm3 MPV 8.2 L 8.6 L (9.4-12.3) fl Neut % (Auto) 57.6 (34.0-71.1) % Lymph % (Auto) 33.2 (19.3-51.7) % [place] % (Auto) 6.7 (4.7-12.5) % Eos % (Auto) 2.2 (0.7-5.8) Baso % (Auto) 0.2 (0.1-1.2) % Neut # (Auto) 4.63 (1.56-6.13) K/mm3 Lymph # (Auto) 2.67 (1.18-3.74) K/mm3 [place] # (Auto) 0.54 H (0.24-0.36) K/mm3 Eos # (Auto) 0.18 (0.04-0.36) K/mm3 Baso # (Auto) 0.02 (0.01-0.08) K/mm3 Neutrophils % (Manual) 77 H (40-60) % Band Neutrophils % 0 (0-10) % Lymphocytes % (Manual) 20 (20-40) % Atypical Lymphs % 0 % Monocytes % (Manual) 1 L (2-10) % Eosinophils % (Manual) 0 L (0.7-5.8) % Basophils % (Manual) 2 H (0.1-1.2) Platelet Estimate Adequate Plt Morphology Comment Normal RBC Morph Comment Normal Sodium 140 (136-145) mEq/L Potassium 4.1 (3.5-5.1) mEq/L Chloride 105 (98-107) mEq/L Carbon Dioxide 26 (21-32) mEq/L Anion Gap 13.1 (5-15) BUN 10 (7-18) mg/dL Creatinine 0.8 (0.55-1.02) mg/dL Est Cr Clr Drug Dosing 87.98 mL/min Estimated GFR (MDRD) > 60 (>60) mL/min BUN/Creatinine Ratio 12.5 L (14-18) Glucose 151 H (74-106) mg/dL Calcium 9.3 (8.5-10.1) mg/dL Magnesium (1.8-2.4) mg/dl Total Bilirubin 0.3 (0.2-1.0) mg/dL AST 18 (15-37) U/L ALT 24 (14-59) U/L Alkaline Phosphatase 99 (46-116) U/L C-Reactive Protein < 0.2 (<1.0) mg/dL Total Protein 7.2 (6.4-8.2) g/dl Albumin 3.5 (3.4-5.0) g/dl Globulin 3.7 gm/dL Albumin/Globulin Ratio 1.0 (1-2) Lipase 4527 H (73-393) U/L 04/09/18 Range/Units 06:10 WBC (3.98-10.04) K/mm3 RBC (3.98-5.22) M/mm3 Hgb (11.2-15.7) gm/L Hct (34.1-44.9) % MCV (79.4-94.8) fl MCH (25.6-32.2) pg MCHC (32.2-35.5) g/dl RDW Std Deviation (36.4-46.3) fL Plt Count (182-369) K/mm3 MPV (9.4-12.3) fl Neut % (Auto) (34.0-71.1) % Lymph % (Auto) (19.3-51.7) % [place] % (Auto) (4.7-12.5) % Eos % (Auto) (0.7-5.8) Baso % (Auto) (0.1-1.2) % Neut # (Auto) (1.56-6.13) K/mm3 Lymph # (Auto) (1.18-3.74) K/mm3 [place] # (Auto) (0.24-0.36) K/mm3 Eos # (Auto) (0.04-0.36) K/mm3 Baso # (Auto) (0.01-0.08) K/mm3 Neutrophils % (Manual) (40-60) % Band Neutrophils % (0-10) % Lymphocytes % (Manual) (20-40) % Atypical Lymphs % % Monocytes % (Manual) (2-10) % Eosinophils % (Manual) (0.7-5.8) % Basophils % (Manual) (0.1-1.2) Platelet Estimate Plt Morphology Comment RBC Morph Comment Sodium 140 (136-145) mEq/L Potassium 4.1 (3.5-5.1) mEq/L Chloride 107 (98-107) mEq/L Carbon Dioxide 26 (21-32) mEq/L Anion Gap 11.1 (5-15) BUN 7 (7-18) mg/dL Creatinine 0.7 (0.55-1.02) mg/dL Est Cr Clr Drug Dosing 100.55 mL/min Estimated GFR (MDRD) > 60 (>60) mL/min BUN/Creatinine Ratio 10.0 L (14-18) Glucose 80 (74-106) mg/dL Calcium 8.5 (8.5-10.1) mg/dL Magnesium 1.7 L (1.8-2.4) mg/dl Total Bilirubin (0.2-1.0) mg/dL AST (15-37) U/L ALT (14-59) U/L Alkaline Phosphatase (46-116) U/L C-Reactive Protein < 0.2 (<1.0) mg/dL Total Protein (6.4-8.2) g/dl Albumin (3.4-5.0) g/dl Globulin gm/dL Albumin/Globulin Ratio (1-2) Lipase 465 H (73-393) U/L Med Orders - Current: Current Medications Hydromorphone HCl (Dilaudid) 0.5 mg IVPUSH Q6HR PRN PRN Reason: Pain (severe 7-10) Ketorolac Tromethamine (Toradol) 15 mg IVPUSH Q8H PRN PRN Reason: Pain (moderate 4-6) Ondansetron HCl (Zofran) 4 mg IVPUSH Q8H PRN PRN Reason: Nausea/Vomiting Ondansetron HCl (Zofran Odt) 4 mg PO Q6H PRN PRN Reason: nausea, able to take PO Temazepam (Restoril) 15 mg PO BEDTIME PRN PRN Reason: Insomnia Discontinued Medications Hydromorphone HCl (Dilaudid) 0.5 mg IVPUSH ONETIME ONE Stop: 04/08/18 19:11 Last Admin: 04/08/18 19:32 Dose: 0.5 mg Hyoscyamine (Hyomax-Sl) 0.125 mg SL ONETIME ONE Stop: 04/08/18 19:10 Last Admin: 04/08/18 19:33 Dose: 0.125 mg Dextrose/Sodium Chloride (Dextrose 5%-Normal Saline) 1,000 mls @ 150 mls/hr IV ASDIRECTED [facility] Last Admin: 04/08/18 19:32 Dose: 150 mls/hr Sodium Chloride (Normal Saline) 1,000 mls @ 100 mls/hr IV ASDIRECTED [facility] Stop: 04/09/18 07:44 Last Admin: 04/08/18 22:10 Dose: 100 mls/hr Magnesium Sulfate 2 gm/ Premix 50 mls @ 25 mls/hr IV ONETIME ONE Stop: 04/09/18 09:49 Last Admin: 04/09/18 08:41 Dose: 25 mls/hr Magnesium Oxide (Magnesium Oxide) 400 mg PO ONETIME ONE Stop: 04/09/18 07:44 Last Admin: 04/09/18 08:37 Dose: Not Given Metoclopramide HCl (Reglan) 7.5 mg IVPUSH ONETIME ONE Stop: 04/08/18 19:11 Last Admin: 04/08/18 19:32 Dose: 7.5 mg Consult PN Assessment/Plan Procedures: Procedures NON-STRESS TEST (02/25/18) URINALYSIS AUTO W/SCOPE (02/25/18) Problem List Initiated/Reviewed/Updated: Yes My Orders Last 24 Hours: My Active Orders 04/09/18 11:28 Verify Patient Consent Obtain [RC] ASDIRECTED 04/10/18 09:00 Schedule Procedure [COMM] Routine Plan: surgical consult dictated ARIADNA
--- NOTE | 2018-04-09 12:19 | PCM.PREANE ---
Preanesthetic Assessment - Procedure Proposed Procedure: lap choley - Anesthesia/Transfusion/Family Hx Anesthesia History: Prior Anesthesia Without Reaction Family History of Anesthesia Reaction: No Transfusion History: No Prior Transfusion(s) - Review of Systems General: No Symptoms Pulmonary: No Symptoms Cardiovascular: No Symptoms Gastrointestinal: Abdominal Pain (denies any right now) Neurological: No Symptoms Other: Reports: None - Physical Assessment NPO Status Date: 04/08/18 NPO Status Time: 23:55 Pulse: 56 O2 Sat by Pulse Oximetry: 99 Respiratory Rate: 16 Blood Pressure: 113/68 Temperature: 98.1 F Vital Signs: Last Vital Signs Temp 98.1 F 04/09/18 12:06 Pulse 56 L 04/09/18 12:06 Resp 16 04/09/18 12:06 BP 113/68 04/09/18 12:06 Pulse Ox 99 04/09/18 12:06 Height: 5 ft 2 in Weight: 58.922 kg ASA Class: 2 Mental Status: Alert & Oriented x3 Airway Class: Mallampati = 1 Dentition: Reports: Normal Dentition Thyro-Mental Finger Breadths: 3 Mouth Opening Finger Breadths: 3 ROM/Head Extension: Full Lungs: Clear to Auscultation, Normal Respiratory Effort Cardiovascular: Regular Rate, Regular Rhythm - Lab Values: Laboratory Last Values WBC 8.05 K/mm3 (3.98-10.04) 04/09/18 06:10 RBC 4.71 M/mm3 (3.98-5.22) 04/09/18 06:10 Hgb 12.6 gm/L (11.2-15.7) 04/09/18 06:10 Hct 39.8 % (34.1-44.9) 04/09/18 06:10 MCV 84.5 fl (79.4-94.8) 04/09/18 06:10 MCH 26.8 pg (25.6-32.2) 04/09/18 06:10 MCHC 31.7 g/dl (32.2-35.5) L 04/09/18 06:10 RDW Std Deviation 42.1 fL (36.4-46.3) 04/09/18 06:10 Plt Count 360 K/mm3 (182-369) 04/09/18 06:10 MPV 8.6 fl (9.4-12.3) L 04/09/18 06:10 Neut % (Auto) 57.6 % (34.0-71.1) 04/09/18 06:10 Lymph % (Auto) 33.2 % (19.3-51.7) 04/09/18 06:10 [place] % (Auto) 6.7 % (4.7-12.5) 04/09/18 06:10 Eos % (Auto) 2.2 (0.7-5.8) 04/09/18 06:10 Baso % (Auto) 0.2 % (0.1-1.2) 04/09/18 06:10 Neut # (Auto) 4.63 K/mm3 (1.56-6.13) 04/09/18 06:10 Lymph # (Auto) 2.67 K/mm3 (1.18-3.74) 04/09/18 06:10 [place] # (Auto) 0.54 K/mm3 (0.24-0.36) H 04/09/18 06:10 Eos # (Auto) 0.18 K/mm3 (0.04-0.36) 04/09/18 06:10 Baso # (Auto) 0.02 K/mm3 (0.01-0.08) 04/09/18 06:10 Neutrophils % (Manual) 77 % (40-60) H 04/08/18 19:25 Band Neutrophils % 0 % (0-10) 04/08/18 19:25 Lymphocytes % (Manual) 20 % (20-40) 04/08/18 19:25 Atypical Lymphs % 0 % 04/08/18 19:25 Monocytes % (Manual) 1 % (2-10) L 04/08/18 19:25 Eosinophils % (Manual) 0 % (0.7-5.8) L 04/08/18 19:25 Basophils % (Manual) 2 (0.1-1.2) H 04/08/18 19:25 Platelet Estimate Adequate 04/08/18 19:25 Plt Morphology Comment Normal 04/08/18 19:25 RBC Morph Comment Normal 04/08/18 19:25 Sodium 140 mEq/L (136-145) 04/09/18 06:10 Potassium 4.1 mEq/L (3.5-5.1) 04/09/18 06:10 Chloride 107 mEq/L (98-107) 04/09/18 06:10 Carbon Dioxide 26 mEq/L (21-32) 04/09/18 06:10 Anion Gap 11.1 (5-15) 04/09/18 06:10 BUN 7 mg/dL (7-18) 04/09/18 06:10 Creatinine 0.7 mg/dL (0.55-1.02) 04/09/18 06:10 Est Cr Clr Drug Dosing 100.55 mL/min 04/09/18 06:10 Estimated GFR (MDRD) > 60 mL/min (>60) 04/09/18 06:10 BUN/Creatinine Ratio 10.0 (14-18) L 04/09/18 06:10 Glucose 80 mg/dL (74-106) 04/09/18 06:10 Calcium 8.5 mg/dL (8.5-10.1) 04/09/18 06:10 Magnesium 1.7 mg/dl (1.8-2.4) L 04/09/18 06:10 Total Bilirubin 0.3 mg/dL (0.2-1.0) 04/08/18 19:25 AST 18 U/L (15-37) 04/08/18 19:25 ALT 24 U/L (14-59) 04/08/18 19:25 Alkaline Phosphatase 99 U/L (46-116) 04/08/18 19:25 C-Reactive Protein < 0.2 mg/dL (<1.0) 04/09/18 06:10 Total Protein 7.2 g/dl (6.4-8.2) 04/08/18 19:25 Albumin 3.5 g/dl (3.4-5.0) 04/08/18 19:25 Globulin 3.7 gm/dL 04/08/18 19:25 Albumin/Globulin Ratio 1.0 (1-2) 04/08/18 19:25 Lipase 465 U/L (73-393) H 04/09/18 06:10 - Allergies Allergies/Adverse Reactions: Allergies Allergy/AdvReac Type Severity Reaction Status Date / Time No Known Allergies Allergy Verified 04/08/18 19:03 - Blood Blood Available: No - Acknowledgements Anesthesia Type Planned: General Anesthesia Pt an Appropriate Candidate for the Planned Anesthesia: Yes Alternatives and Risks of Anesthesia Discussed w Pt/Guardian: Yes Pt/Guardian Understands and Agrees with Anesthesia Plan: Yes PreAnesthesia Questionnaire - Past Health History Medical/Surgical History: Denies Medical/Surgical History HEENT History: Reports: Impaired Vision Cardiovascular History: Reports: None Respiratory History: Reports: None Gastrointestinal History: Reports: Cholelithiasis Other Gastrointestinal History: Hx of Gall stones, will have f/u appointment after to remove Genitourinary History: Reports: None 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 [No Known Home Meds] 04/08/18 [History] - CURRENT (IN HOUSE) MEDS Current Meds: Current Medications Hydromorphone HCl (Dilaudid) 0.5 mg IVPUSH Q6HR PRN PRN Reason: Pain (severe 7-10) Ketorolac Tromethamine (Toradol) 15 mg IVPUSH Q8H PRN PRN Reason: Pain (moderate 4-6) Ondansetron HCl (Zofran) 4 mg IVPUSH Q8H PRN PRN Reason: Nausea/Vomiting Ondansetron HCl (Zofran Odt) 4 mg PO Q6H PRN PRN Reason: nausea, able to take PO Temazepam (Restoril) 15 mg PO BEDTIME PRN PRN Reason: Insomnia Discontinued Medications Hydromorphone HCl (Dilaudid) 0.5 mg IVPUSH ONETIME ONE Stop: 04/08/18 19:11 Last Admin: 04/08/18 19:32 Dose: 0.5 mg Hyoscyamine (Hyomax-Sl) 0.125 mg SL ONETIME ONE Stop: 04/08/18 19:10 Last Admin: 04/08/18 19:33 Dose: 0.125 mg Dextrose/Sodium Chloride (Dextrose 5%-Normal Saline) 1,000 mls @ 150 mls/hr IV ASDIRECTED [facility] Last Admin: 04/08/18 19:32 Dose: 150 mls/hr Sodium Chloride (Normal Saline) 1,000 mls @ 100 mls/hr IV ASDIRECTED [facility] Stop: 04/09/18 07:44 Last Admin: 04/08/18 22:10 Dose: 100 mls/hr Magnesium Sulfate 2 gm/ Premix 50 mls @ 25 mls/hr IV ONETIME ONE Stop: 04/09/18 09:49 Last Admin: 04/09/18 08:41 Dose: 25 mls/hr Magnesium Oxide (Magnesium Oxide) 400 mg PO ONETIME ONE Stop: 04/09/18 07:44 Last Admin: 04/09/18 08:37 Dose: Not Given Metoclopramide HCl (Reglan) 7.5 mg IVPUSH ONETIME ONE Stop: 04/08/18 19:11 Last Admin: 04/08/18 19:32 Dose: 7.5 mg
--- NOTE | 2018-04-09 13:52 | CONS ---
CONSULTING PHYSICIAN: Kayden Guan MD DATE OF CONSULTATION: 04/08/2018 HISTORY OF PRESENT ILLNESS: This is a 22-year-old who comes in with right upper quadrant pain yesterday, starting about 1500 after eating a hot dog. The patient was evaluated in the emergency room and found to have a lipase of 4000. The patient has had a delivery on February 09, 2018 and all through the delivery, she has had problems with gallstones. She had it worked up with a CT ultrasound showing cholelithiasis. The patient's pain is described as right upper quadrant, radiating to the back. She was placed in the hospital on clear liquid diet and followed the amylase, it has come down to 400. Her pain is much improved. She is hungry. PAST MEDICAL HISTORY: Recent delivery and history of gallstones as reported. SOCIAL HISTORY: No smoking, no drinking, no use of drugs. Recent child. REVIEW OF SYSTEMS: No chest pain, shortness of breath, cough, hoarseness, wheezing, fainting, weakness, numbness, or convulsions. Did have nausea, no vomiting, and did have abdominal pain. No diarrhea. PHYSICAL EXAMINATION: GENERAL: Reveals an alert, cooperative, female. VITAL SIGNS: Temperature 36, pulse 64, blood pressure 114/73. EYES: Sclerae white. Extraocular muscle motion normal. ORAL CAVITY: Healthy mucous membrane with mouth and tongue. NECK: Supple. No nodes. No thyromegaly. Trachea midline. LUNGS: Clear. No rales, rhonchi, fremitus, or dullness. HEART: Heart tones are regular rate. No S3, S4, jugular venous distention, or murmurs. ABDOMEN: Shows mild tenderness to deep palpation in right upper quadrant. EXTREMITIES: Upper and lower extremities, no angulation deformities. SKIN: Warm and dry. NEUROLOGIC: Cranial nerves 3 through 12 intact. No sensorineural deficit. PSYCHIATRIC: Normal. ASSESSMENT: Recent delivery, in February, cholelithiasis and pancreatitis. Pancreatitis, resolving. PLAN: Let the pancreas cool down in another 24 hours and proceed with laparoscopic cholecystectomy and intraoperative cholangiogram. Discussed this with the patient, the risks, the complications, drawing out the picture of the procedure, and she understands and consents. MMODAL /[id number]
[2018-04-10] MEDS ORDERED: Bupivacaine 0.5% 30 ML SDV ONE (07:42)
[2018-04-10] MEDS ORDERED: Iopamidol 612 MG/ML 50 ML SDV ONE (07:42)
[2018-04-10] MEDS ORDERED: Sodium Chloride 0.9% 50 ML SDV ONE ×2 (07:43)
[2018-04-10] MEDS ORDERED: Ondansetron 4 MG/2 ML SDV ONE (08:37)
[2018-04-10] MEDS ORDERED: Rocuronium 50 MG/5 ML Vial ONE (08:37)
[2018-04-10] MEDS ORDERED: Lidocaine 1% 4 ML ONE (08:37)
[2018-04-10] MEDS ORDERED: Dexamethasone 4 MG/ML 5 ML MDV ONE (08:38)
[2018-04-10] MEDS ORDERED: fentaNYL 250 MCG/5 ML SDV ONE (08:38)
[2018-04-10] MEDS ORDERED: Midazolam 1 MG/ML 2 ML SDV ONE (08:38)
[2018-04-10] MEDS ORDERED: Propofol 200 MG/20 ML SDV ONE (08:38)
[2018-04-10] MEDS ORDERED: Lactated Ringers 1,000 ML ONE ×2 (08:40→09:42)
[2018-04-10] MEDS ORDERED: ceFAZolin 1 GM Vial ONE (09:07)
[2018-04-10] MEDS ORDERED: HYDROmorphone 0.5 MG/0.5 ML Syringe ONE ×3 (09:18→09:42)
[2018-04-10] MEDS ORDERED: Ondansetron 4 MG/2 ML SDV IVPUSH PRN (09:21)
[2018-04-10] MEDS ORDERED: fentaNYL 100 MCG/2 ML SDV IVPUSH PRN (09:21)
[2018-04-10] MEDS ORDERED: Meperidine PF 50 MG/ML Syringe IVPUSH PRN (09:21)
[2018-04-10] MEDS ORDERED: HYDROmorphone 0.5 MG/0.5 ML SYRINGE IVPUSH PRN (09:21)
[2018-04-10] MEDS ORDERED: Ketorolac 30 MG/ML SDV ONE (10:20)
[2018-04-10] MEDS ORDERED: Neostigmine Methylsulfate 1 MG/ML 5 ML Syringe ONE (10:21)
[2018-04-10] MEDS ORDERED: fentaNYL 100 MCG/2 ML SDV ONE (10:27)
--- NOTE | 2018-04-10 10:40 | PCM.OPNOTE ---
- General Post-Op/Procedure Note Date of Surgery/Procedure: 04/10/18 Operative Procedure(s): lap talon with IOC Pre Op Diagnosis: cholelithiasis with pancreatitis Post-Op Diagnosis: Same Anesthesia Technique: General ET Tube Primary Surgeon: Kayden Guan EBL in mLs: 5 Complications: None Condition: Good Free Text/Narrative:: Intake & Output 04/09/18 04/10/18 04/10/18 23:59 07:59 15:59 Intake Total 1390 500 Output Total 1800 1050 Balance -410 -550
--- NOTE | 2018-04-10 10:44 | PCM.POSTAN ---
POST ANESTHESIA ASSESSMENT - MENTAL STATUS Mental Status: Oriented, Somnolent - VITAL SIGNS Pulse Rate: 73 SaO2: 99 Resp Rate: 19 Blood Pressure: 130/85 Temperature: 98.2 F - RESPIRATORY Respiratory Status: Respiratory Rate WNL, Airway Patent, O2 Saturation Stable, Supplemental Oxygen - CARDIOVASCULAR CV Status: Pulse Rate WNL, Blood Pressure Stable - GASTROINTESTINAL GI Status: No Symptoms - PAIN Pain Score: 0 - POST OP HYDRATION Hydration Status: Adequate & Stable
--- NOTE | 2018-04-10 10:45 | PCM.PN ---
- General Info Date of Service: 04/10/18 - Patient Data Vitals - Most Recent: Last Vital Signs Temp 98.2 F 04/10/18 10:43 Pulse 73 04/10/18 10:43 Resp 19 04/10/18 10:43 BP 130/85 04/10/18 10:43 Pulse Ox 99 04/10/18 10:43 Weight - Most Recent: 58.649 kg I&O - Last 24 Hours: Intake & Output 04/09/18 04/10/18 04/10/18 23:59 07:59 15:59 Intake Total 1390 500 Output Total 1800 1050 Balance -410 -550 Lab Results Last 24 Hours: Laboratory Results - last 24 hr 04/10/18 04/10/18 04/10/18 Range/Units 05:55 05:55 08:03 WBC 6.74 (3.98-10.04) K/mm3 RBC 4.76 (3.98-5.22) M/mm3 Hgb 12.8 (11.2-15.7) gm/L Hct 40.2 (34.1-44.9) % MCV 84.5 (79.4-94.8) fl MCH 26.9 (25.6-32.2) pg MCHC 31.8 L (32.2-35.5) g/dl RDW Std Deviation 41.7 (36.4-46.3) fL Plt Count 348 (182-369) K/mm3 MPV 8.7 L (9.4-12.3) fl Neut % (Auto) 53.9 (34.0-71.1) % Lymph % (Auto) 35.9 (19.3-51.7) % [place] % (Auto) 6.8 (4.7-12.5) % Eos % (Auto) 3.0 (0.7-5.8) Baso % (Auto) 0.3 (0.1-1.2) % Neut # (Auto) 3.63 (1.56-6.13) K/mm3 Lymph # (Auto) 2.42 (1.18-3.74) K/mm3 [place] # (Auto) 0.46 H (0.24-0.36) K/mm3 Eos # (Auto) 0.20 (0.04-0.36) K/mm3 Baso # (Auto) 0.02 (0.01-0.08) K/mm3 Sodium 139 (136-145) mEq/L Potassium 3.9 (3.5-5.1) mEq/L Chloride 106 (98-107) mEq/L Carbon Dioxide 25 (21-32) mEq/L Anion Gap 11.9 (5-15) BUN 7 (7-18) mg/dL Creatinine 0.6 (0.55-1.02) mg/dL Est Cr Clr Drug Dosing 117.31 mL/min Estimated GFR (MDRD) > 60 (>60) mL/min BUN/Creatinine Ratio 11.7 L (14-18) Glucose 77 (74-106) mg/dL Calcium 8.5 (8.5-10.1) mg/dL Magnesium 1.9 (1.8-2.4) mg/dl C-Reactive Protein < 0.2 (<1.0) mg/dL Urine HCG, Qual Negative (NEGATIVE) Med Orders - Current: Current Medications Fentanyl (Sublimaze) 50 mcg IVPUSH Q5M PRN PRN Reason: Pain Hydromorphone HCl (Dilaudid) 0.5 mg IVPUSH Q6HR PRN PRN Reason: Pain (severe 7-10) Hydromorphone HCl (Dilaudid) 0.5 mg IVPUSH ONETIME PRN PRN Reason: Pain (severe 7-10) Ketorolac Tromethamine (Toradol) 15 mg IVPUSH Q8H PRN PRN Reason: Pain (moderate 4-6) Last Admin: 04/09/18 23:23 Dose: 15 mg Meperidine HCl (Demerol) 12.5 mg IVPUSH ONETIME PRN PRN Reason: shivering Ondansetron HCl (Zofran) 4 mg IVPUSH Q8H PRN PRN Reason: Nausea/Vomiting Ondansetron HCl (Zofran Odt) 4 mg PO Q6H PRN PRN Reason: nausea, able to take PO Ondansetron HCl (Zofran) 4 mg IVPUSH ONETIME PRN PRN Reason: Nausea/Vomiting Temazepam (Restoril) 15 mg PO BEDTIME PRN PRN Reason: Insomnia Discontinued Medications Bupivacaine HCl (Marcaine 0.5%) Confirm Administered Dose 30 ml .ROUTE .STK-MED ONE Stop: 04/10/18 07:43 Last Admin: 04/10/18 09:23 Dose: 10 ml Cefazolin Sodium (Ancef) Confirm Administered Dose 2 gm .ROUTE .STK-MED ONE Stop: 04/10/18 09:08 Dexamethasone (Dexamethasone) Confirm Administered Dose 20 mg .ROUTE .STK-MED ONE Stop: 04/10/18 08:39 Fentanyl (Sublimaze) Confirm Administered Dose 250 mcg .ROUTE .STK-MED ONE Stop: 04/10/18 08:39 Fentanyl (Sublimaze) Confirm Administered Dose 100 mcg .ROUTE .STK-MED ONE Stop: 04/10/18 10:28 Glycopyrrolate () Confirm Administered Dose 1 mg .ROUTE .STK-MED ONE Stop: 04/10/18 10:22 Hydromorphone HCl (Dilaudid) 0.5 mg IVPUSH ONETIME ONE Stop: 04/08/18 19:11 Last Admin: 04/08/18 19:32 Dose: 0.5 mg Hydromorphone HCl (Dilaudid) Confirm Administered Dose 0.5 mg .ROUTE .STK-MED ONE Stop: 04/10/18 09:19 Hydromorphone HCl (Dilaudid) Confirm Administered Dose 0.5 mg .ROUTE .STK-MED ONE Stop: 04/10/18 09:35 Hydromorphone HCl (Dilaudid) Confirm Administered Dose 0.5 mg .ROUTE .STK-MED ONE Stop: 04/10/18 09:43 Hyoscyamine (Hyomax-Sl) 0.125 mg SL ONETIME ONE Stop: 04/08/18 19:10 Last Admin: 04/08/18 19:33 Dose: 0.125 mg Dextrose/Sodium Chloride (Dextrose 5%-Normal Saline) 1,000 mls @ 150 mls/hr IV ASDIRECTED [facility] Last Admin: 04/08/18 19:32 Dose: 150 mls/hr Sodium Chloride (Normal Saline) 1,000 mls @ 100 mls/hr IV ASDIRECTED [facility] Stop: 04/09/18 07:44 Last Admin: 04/08/18 22:10 Dose: 100 mls/hr Magnesium Sulfate 2 gm/ Premix 50 mls @ 25 mls/hr IV ONETIME ONE Stop: 04/09/18 09:49 Last Admin: 04/09/18 08:41 Dose: 25 mls/hr Lidocaine HCl (Xylocaine-Mpf 1%) Confirm Administered Dose 4 mls @ as directed .ROUTE .ST-MED ONE Stop: 04/10/18 08:38 Lactated Ringer's (Ringers, Lactated) Confirm Administered Dose 1,000 mls @ as directed .ROUTE .STK-MED ONE Stop: 04/10/18 08:41 Lactated Ringer's (Ringers, Lactated) Confirm Administered Dose 1,000 mls @ as directed .ROUTE .ST-MED ONE Stop: 04/10/18 09:43 Iopamidol (Isovue-300 (61%)) Confirm Administered Dose 50 ml .ROUTE .ST-MED ONE Stop: 04/10/18 07:43 Ketorolac Tromethamine (Toradol) Confirm Administered Dose 30 mg .ROUTE .ST- MED ONE Stop: 04/10/18 10:21 Magnesium Oxide (Magnesium Oxide) 400 mg PO ONETIME ONE Stop: 04/09/18 07:44 Last Admin: 04/09/18 08:37 Dose: Not Given Metoclopramide HCl (Reglan) 7.5 mg IVPUSH ONETIME ONE Stop: 04/08/18 19:11 Last Admin: 04/08/18 19:32 Dose: 7.5 mg Midazolam HCl (Versed 1 Mg/Ml) Confirm Administered Dose 2 mg .ROUTE .ST-MED ONE Stop: 04/10/18 08:39 Neostigmine Methylsulfate (Neostigmine) Confirm Administered Dose 5 mg .ROUTE .ST-MED ONE Stop: 04/10/18 10:22 Ondansetron HCl (Zofran) Confirm Administered Dose 4 mg .ROUTE .ST-MED ONE Stop: 04/10/18 08:38 Propofol (Diprivan 20 Ml) Confirm Administered Dose 200 mg .ROUTE .ST-MED ONE Stop: 04/10/18 08:39 Rocuronium [place] (Zemuron) Confirm Administered Dose 50 mg .ROUTE .STK-MED ONE Stop: 04/10/18 08:38 Sodium Chloride (Normal Saline) Confirm Administered Dose 50 ml .ROUTE .ST-MED ONE Stop: 04/10/18 07:44 Sodium Chloride (Normal Saline) Confirm Administered Dose 50 ml .ROUTE .ST-MED ONE Stop: 04/10/18 07:44 - Problem List Review Problem List Initiated/Reviewed/Updated: Yes - My Orders Last 24 Hours: My Active Orders 04/09/18 11:28 Verify Patient Consent Obtain [RC] ASDIRECTED 04/10/18 09:00 Cholangiogram In OR [CR] Routine Schedule Procedure [COMM] Routine 04/10/18 10:41 Ready for Discharge [RC] PER UNIT ROUTINE - Plan Plan:: I/P: Acute; Pancreatitis -Increasing RUQ pain starting 1500 on 04/08/18 -Pain started after eating hotdogs, macaroni and cheese -Reports having pain and issues for some time - since before -Known cholelithiasis - has appointment to see surgeon on 04/13/18 -Very mild leukocytosis (10.53) -->8.05 -CRP WNL -No transaminitis - AST 18, ALT 24, Alk Phos 99 -Lipase 4527-->465 -NPO for now, will advance once Dr. Guan sees her -Fluids as ordered -Pain medications as ordered -Anti-emetics as needed -GS consult - Dr. Guan -Obtain old records - was worked-up for cholelithiasis recently; has had HIDA scan and CT recently -Samir's Criteria: Incomplete (no LDH); 0 -Healthy delivery via on 03/08/18 -Not breast feeding -Had appointment with Dr. Gaitan on 04/09/18 - contacted her and updated Hypomagnesemia -Magnesium 1.7 -Supplement Chronic: Cholelithiasis Plan: Admit to medical floor She is ambulating and active so will hold off PT/OT DVT/PE prophylaxis: NAZARIO Hose, ambulation Other orders as indicated above No current home meds Code status: Full code; PCP: None locally; Sees Dr. Gaitan for OB discharge dictated ARIADNA
[2018-04-10] MEDS ORDERED: Acetaminophen/HYDROcodone 325-5 MG Tab PO PRN (11:38)
--- NOTE | 2018-04-10 12:41 | PCM48HPAN ---
Post Anesthesia Note - EVALUATION WITHIN 48HRS OF ANESTHETIC Vital Signs in Normal Range: Yes Patient Participated in Evaluation: No (discharged- spoke with nurse) Respiratory Function Stable: Yes Airway Patent: Yes Cardiovascular Function Stable: Yes Hydration Status Stable: Yes Pain Control Satisfactory: Yes Nausea and Vomiting Control Satisfactory: Yes Mental Status Recovered: Yes
--- NOTE | 2018-04-12 08:23 | CR ---
Operative cholangiogram: Multiple fluoroscopic spot views were obtained utilizing C-arm device. There appears to be normal filling of the CHD and CBD as well as normal contrast into the duodenum. No filling defects are seen to indicate retained stone. Impression: 1. Nothing is seen to indicate retained stone on operative cholangiogram exam. Diagnostic code #1
--- NOTE | 2018-04-12 10:46 | OR ---
DATE OF OPERATION: 04/10/2018 SURGEON: Kayden Guan MD PREOPERATIVE DIAGNOSIS: Cholelithiasis with pancreatitis. POSTOPERATIVE DIAGNOSIS: Cholelithiasis with pancreatitis. PROCEDURE: Laparoscopic cholecystectomy and intraoperative cholangiogram. FINDINGS: Adhesions over the fundus of the gallbladder, stones in the gallbladder and in the cystic duct. These were milked out. Cholangiogram was done, showing normal cholangiogram with both, presence of right and left hepatic ducts forming normal hepatic duct flowing into the common duct and flowing into the duodenum. No dilatation or obstruction was noted. ESTIMATED BLOOD LOSS: 5 mL. DESCRIPTION OF PROCEDURE: The patient taken to the operating room, placed in the supine position, connected to monitoring equipment, given a general anesthetic and intubated. Antibiotics were given, SCDs were placed, and the abdomen prepped with chlorhexidine and alcohol, prepped and draped off in a sterile fashion. Incision was made just below the umbilicus. Using a 5 mm Optiport, the abdominal cavity was entered. A 5 mm 0-degree camera was then inserted. Abdominal cavity was scanned, showing the gallbladder in the right upper quadrant. A 10 mm trocar placed in the epigastric position, one in the right upper quadrant, one in the right lateral quadrant. The fundus of the gallbladder was retracted in a cephalad position. The patient re-placed in reverse Trendelenburg, leftward tilt. Adhesions were then taken down, exposing the Lonnie pouch, and this was retracted in a caudal position. Then, Calot's triangle was then dissected out, showing the cystic plate, cystic artery ramifying onto the gallbladder and the cystic duct Lonnie pouch junction. Two clips were placed on the cystic artery, one clip placed on the cystic duct Lonnie pouch junction. Incision was made, and the cystic duct stones were noted, and these were milked out and retrieved. A cholangiocatheter was inserted and secured with clip and a cholangiogram using the C-arm and contrast material diluted with equal parts of saline, was then performed. This showed the above findings. The cholangiocatheter was then removed, and an 0 PDS Endoloop placed on the cystic duct. Cystic duct was cut. Another clip was placed on the tip of the cystic duct. Cystic artery was cut, and then the gallbladder was dissected from its attachment to the liver, placed in an Endobag, and removed from the abdominal cavity. Pneumoperitoneum was then reestablished and the area was then irrigated and checked for hemostasis which was excellent, and this completed the intraabdominal portion of the procedure. The pneumoperitoneum was then removed along with the ports, and the skin of each port closed with subdermal 4-0 Dexon suture and each port was anesthetized with 0.5% Marcaine, and Steri-Strips and Mastisol was used to dress the wound along with a gauze dressing. The patient tolerated the procedure and sent to recovery room in a stable condition, will be discharged and followed up in the clinic and instructed in wound care. OPERATION PERFORMED: ANESTHESIA: MMODAL /[id number]
--- NOTE | 2018-04-12 12:58 | DISCH ---
ADMISSION DATE: 04/08/2018 DISCHARGE DATE: 04/10/2018 HISTORY OF PRESENT ILLNESS: This is a 22-year-old female, who presented to the emergency room department on 03/09/2018, nausea, vomiting, pain in the right upper quadrant radiating to the back. She had pain like this prior to this and was 1 month and was scheduled to be evaluated for lap cholecystectomy, and that she did have an ultrasound showing stones in the gallbladder. The patient, however, on evaluation in the ER was found to have elevated lipase of 4500. PHYSICAL EXAMINATION: GENERAL: At the time of admission revealed an alert, cooperative female. ABDOMEN: Unremarkable at the time of admission. EYES, EARS, NOSE, AND THROAT: Negative. LUNGS: Clear. HEART: Tones regular rate. ABDOMEN: Soft. Surgical scar from was noted. EXTREMITIES: Upper and lower extremities, no angulation deformities. HOSPITAL COURSE: The patient was admitted to the hospital, placed on IV fluids, amylase came down, and her vital signs normalized along with the lipase and she was brought to the operating room for a laparoscopic cholecystectomy, which was done uneventfully along with a cholangiogram, which showed normal duct system. The patient tolerated and reached maximum hospital benefit and was discharged. FINAL DIAGNOSES: Cholelithiasis with pancreatitis, resolved, status post laparoscopic cholecystectomy, intraoperative cholangiogram. ACTIVITY: No strenuous work. DISCHARGE MEDICATIONS: Vicodin 5/325 one p.o. q.i.d. p.r.n. pain. FOLLOW-UP: Appointment to follow up with Dr. Gaitan, her OB doctor, and Dr. Guan in 1 week for surgical followup. CONDITION ON DISCHARGE: Stable, improved. DIET: Regular. No work. MMODAL /[id number]
== END 2018-04-10 12:35 | disposition home or self-care (01) | DRG 769 ==
LOC: JD.ED 18:55 → JD.MS 20:44
PROVIDERS: ADMIT Internal Medicine Cardiovascular Disease; ATTEND Internal Medicine Cardiovascular Disease
PROC: 0FT44ZZ Resection of Gallbladder, Percutaneous Endoscopic Approach (ICD-10-PCS; principal; 2018-04-10)
PROC: BF101ZZ Fluoroscopy of Bile Ducts using Low Osmolar Contrast (ICD-10-PCS; principal; 2018-04-10)
DX: O99.63 Diseases of the digestive system complicating the puerperium (principal); K85.90 Acute pancreatitis without necrosis or infection, unspecified; K80.80 Other cholelithiasis without obstruction; H54.7 Unspecified visual loss; R10.11 Right upper quadrant pain; R11.2 Nausea with vomiting, unspecified; R06.02 Shortness of breath; O90.89 Other complications of the puerperium, not elsewhere classified; R00.1 Bradycardia, unspecified; O99.285 Endocrine, nutritional and metabolic diseases complicating the puerperium; E83.42 Hypomagnesemia; Z98.891 History of uterine scar from previous surgery; Z87.891 Personal history of nicotine dependence
CPT/HCPCS: 36415; 80053; 83690; 85007; 85027; 86140; A9270; J1170; J2765; J7042; 74300; 74300-26; 80048; 81025; 83735; 85025; 96361; 96374; 96375; 99284; 99285-25; J0690; J1100; J1885; J2001; J2250; J2405; J2704; J2710; J3010; J3475; J7040; J7120; Q9967